=== PATIENT | female | born 1960 | race Caucasian/White ===

== ENCOUNTER 2016-09-20 17:23 | Emergency (ER) | payer SELFPAY ==
[~2016-09-20] VITALS: Wt 40.9 kg
[~2016-09-20 17:23] MED LIST: [UNRECOGNIZED DRUG - CODE]
== END 2016-09-20 19:46 | disposition left against medical advice (07) ==
LOC: E/R 17:23
DX: Z53.21 Procedure and treatment not carried out due to patient leaving prior to being seen by health care provider (principal)

== ENCOUNTER 2017-01-12 10:54 | Emergency (ER) | END 2017-01-12 13:05 | disposition home or self-care (01) | DX: R30.0 Dysuria (principal) | CPT/HCPCS: 81003; Z7502; Z7610 ==

== ENCOUNTER 2017-01-15 08:09 | Emergency (ER) | payer OTHER ==
[~2017-01-15] VITALS: Ht 137.2 cm; Wt 43.0 kg
[~2017-01-15 08:09] MED LIST changes: +ACET500C5 PO; +CEPH-443 PO
[2017-01-15 08:12] VITALS: Ht 137.2 cm; Wt 43.0 kg
[2017-01-15 08:45] LABS: URINE BLOOD (Dip) POC Negative (NEGATIVE)
[2017-01-15] MEDS ORDERED: LIDOCAINE 1% (MDV) 20 ML INJ IM ONE (09:00)
[2017-01-15] MEDS ORDERED: CEFTRIAXONE 500 MG INJ IM ONE (09:00)
--- NOTE | 2017-01-15 09:31 | RADRPT ---
PROCEDURE: Pelvic ultrasound. CLINICAL INDICATION: Pelvic pain TECHNIQUE: Benson scale, color doppler, spectral doppler ultrasound of the pelvis was performed with transabdominal and transvaginal transducers. COMPARISON: CT abdomen pelvis 08/17/2013 FINDINGS: Uterus: Position: Retroverted Normal myometrial echogenicity. Normal appearance of the endometrium. Ovaries: Not identified by the cnc operator programmer Free fluid: None. Measurements: Endometrium: 0.37 cm Uterus: 6.3 x 2.2 x 3.4 cm IMPRESSION: Normal appearance of the uterus and endometrium. Ovaries not identified by the cnc operator programmer. RPTAT: AADD .Ashish Schmidt MD, MD Date Time Electronically viewed and signed by .Ashish Schmidt MD, on 01/15/2017 09:30 .B/
[2017-01-15] MEDS ORDERED: FLUCONAZOLE 150 MG TAB PO ONE (10:00)
[2017-01-15] MEDS ORDERED: NITR-58 PO (10:07)
--- NOTE | 2017-01-15 10:23 | ERD ---
ER Documentation Chief Complaint Date/Time DATE: 01/15/17 TIME: 10:15 Chief Complaint PELVIC PAIN , PAINFUL URINATION HPI 56-year-old female complaining of vaginal pain, pelvic pain and dysuria times several days. Patient was seen here on 01/11/2017, was diagnosed with UTI. She was given Keflex prescription. Patient stated that she felt nausea and vomiting after taking the Keflex. She stopped taking them. She vomited twice this morning. Able to maintain fluid intake. Patient reports vaginal burning but no itching. Denies vaginal discharge. Denies fever or chills. Denies flank pain. ROS All systems reviewed and are negative except as per history of present illness. Medications Home Meds Active Scripts Nitrofurantoin Monohyd Macrocr* (Macrobid*) 100 Mg Capsr, 100 MG PO BID for 7 Days, CAP Prov:TONY RODRIGUEZ HAY FARMER 01/15/17 Acetaminophen* (Tylophen*) 500 Mg Capsule, 1 CAP PO Q6H Y for PAIN AND OR ELEVATED TEMP, #20 CAP Prov:EDWARD HARRIS PA-C 01/12/17 Cephalexin* (Keflex*) 500 Mg Capsule, 500 MG PO BID for 7 Days, CAP Prov:EDWARD HARRIS-C 01/12/17 Reported Medications Famotidine* (Acid Director Child Abuse Therapy*) 20 Mg Tablet 10/18/12 Allergies Allergies: Coded Allergies: ciprofloxacin (Verified Allergy, Intermediate, rashes, 08/02/12) morphine (Verified Adverse Reaction, DIARRHEA,VOMITING, 08/02/12) PMhx/Soc History of Surgery: Yes (APPENDECTOMY) Anesthesia Reaction: No Hx Neurological Disorder: No Hx Respiratory Disorders: No Hx Cardiac Disorders: No Hx Psychiatric Problems: No Hx Miscellaneous Medical Probl: No Hx Alcohol Use: No Hx Substance Use: No Hx Tobacco Use: No Physical Exam Vitals Vital Signs Date Time Temp Pulse Resp B/P Pulse Ox O2 Delivery O2 Flow Rate FiO2 01/15/17 08:12 98.8 86 18 120/60 99 Physical Exam General: Well-developed, well-nourished, conscious and coherent, in no distress Skin: Warm and dry without rash, good texture and turgor Head: Normocephalic without evidence of trauma Eyes: Sclera and conjunctivae normal; pupils equal, round, and reactive to light; extraocular movements are intact Neck: Supple without meningismus or adenopathy. Carotids are equal. Trachea midline. No bruits or JVD Chest: Normal AP diameter. Good expansion without retractions. Nontender. Lungs are clear to auscultate bilaterally with good tidal volume Heart: Regular rate and rhythm. No murmur, rub, or gallops heard Abdomen: Soft and nontender without masses, guarding, or rebound. Bowel sounds are active. No hepatosplenomegaly Back: Without spinal or CVA tenderness Pelvis: Suprapubic tenderness with mild left pelvic tenderness. : External genitalia without lesions or masses. Large amount of thick, white discharge noted in the vaginal canal. Cervix normal, no cervical motion tenderness noted. Uterus nontender and normal size. No adnexal tenderness or masses noted. Extremities: Full range of motion. Good strength bilaterally. No clubbing, cyanosis, or edema. Peripheral pulses are intact. Sensation intact Neuro: Alert and oriented 4, GCS 15. Cranial nerves grossly intact. Motor and sensory exams nonfocal. Moves all extremities. Speech clear. Gait normal Results 24 hrs Laboratory Tests Test 01/15/17 08:50 Bedside Urine pH (LAB) 7.0 Bedside Urine Protein (LAB) Negative Bedside Urine Glucose (UA) Negative Bedside Urine Ketones (LAB) Negative Bedside Urine Blood Negative Bedside Urine Nitrite (LAB) Negative Bedside Urine Leukocyte Esterase (L 2+ Current Medications Medications (Trade) Dose Ordered Sig/Gena Route PRN Reason Start Time Stop Time Status Last Admin Dose Admin Ceftriaxone Sodium (Rocephin) 500 mg ONCE ONCE IM 01/15/17 09:00 01/15/17 09:01 DC 01/15/17 08:57 Lidocaine (Xylocaine 1% (Mdv) 20 ml) 1 ml ONCE ONCE IM 01/15/17 09:00 01/15/17 09:01 DC 01/15/17 08:59 Fluconazole (Diflucan) 150 mg ONCE ONCE PO 01/15/17 10:00 01/15/17 10:01 DC PROCEDURE: Pelvic ultrasound. CLINICAL INDICATION: Pelvic pain TECHNIQUE: Benson scale, color doppler, spectral doppler ultrasound of the pelvis was performed with transabdominal and transvaginal transducers. COMPARISON: CT abdomen pelvis 08/17/2013 FINDINGS: Uterus: Position: Retroverted Normal myometrial echogenicity. Normal appearance of the endometrium. Ovaries: Not identified by the paper coating supervisor Free fluid: None. Measurements: Endometrium: 0.37 cm Uterus: 6.3 x 2.2 x 3.4 cm IMPRESSION: Normal appearance of the uterus and endometrium. Ovaries not identified by the paper coating supervisor. RPTAT: AADD .Ashish Schmidt MD, Date Time Electronically viewed and signed by .Ashish Schmidt MD, on 01/15/2017 09:30 .B/ CC: TONY RODRIGUEZ. HAY FARMER Procedures/MDM Well-appearing 56-year-old female presented ED with UTI symptoms. Patient did not take the prescribed antibiotics. Urine dip today again is positive for leukocyte. Urine sent out for culture and sensitivity. She is afebrile, no CVA tenderness. I doubt she has pyelonephritis. Rocephin 500 mg IM given to the patient in the ED. Patient also will be given prescription of Macrobid. Pelvic exam showed large amount of thick white vaginal discharge. Patient also reports vaginal pain and burning. I suspect that she has yeast vaginitis. Diflucan 150 mg p.o. given to the patient in the ED. Pelvic ultrasound is unremarkable. I doubt pelvic inflammatory disease, ovarian torsion, ruptured ovarian cyst, ectopic . Patient appears well, stable for discharge and outpatient management. Medical decision making shared with patient and family. Education provided to patient and family. Patient and family expressed understanding of the plan. Medications on discharge: Macrobid. Follow-up: Primary care provider in 2-3 days or return to ED if worse. Departure Diagnosis: Primary Impression: UTI (urinary tract infection) Urinary tract infection type: acute cystitis Hematuria presence: with hematuria Qualified Code: N30.01 - Acute cystitis with hematuria Additional Impression: Yeast infection of the vagina Condition: Good Patient Instructions: Understanding Urinary Tract Infections (UTIs), Vaginal Infection: Yeast (Candidiasis) Additional Instructions: Llame al doctor MAANA y darrell juwan RICHAR PARA DENTRO DE 2-3 AARON.Dgale a la secretaria que nosotros le instruimos hacer esta richar.Avise o llame si carney condicin se empeora antes de la richra. Regresa aqui si peor o no mejor. TONY RODRIGUEZ. WINSTON Jan 15, 2017 10:23
[2017-01-15 10:32] VITALS: BP 118/64; PULSE 75; RESP 19
== END 2017-01-15 10:35 | disposition home or self-care (01) ==
LOC: FTE 08:09
DX: N30.01 Acute cystitis with hematuria (principal); B37.3 Candidiasis of vulva and vagina
CPT/HCPCS: 76830; 76856; 81003; 87086; J0696; Z7610; 96372

== ENCOUNTER 2017-04-10 07:43 | Emergency (ER) | payer OTHER ==
[~2017-04-10] VITALS: Ht 144.8 cm; Wt 44.0 kg
[~2017-04-10 07:43] MED LIST changes: +CYCL-319 PO; +IBUP-1542 PO; +NITR-58 PO; +PHEN-538 PO
[2017-04-10 07:46] VITALS: Ht 144.8 cm; Wt 44.0 kg
[2017-04-10] MEDS ORDERED: IBUPROFEN 800 MG TAB PO ONE (08:30)
--- NOTE | 2017-04-10 08:40 | RADRPT ---
PROCEDURE: XR Hand. CLINICAL INDICATION: Right hand pain. TECHNIQUE: Three views. Frontal, lateral, and oblique images of the right hand were obtained. COMPARISON: No prior studies are available for comparison. FINDINGS: There is no fracture or dislocation. The soft tissues are normal. There are degenerative changes of the first interphalangeal joint with joint space narrowing and ost eophytes. The articular surfaces are otherwise intact. There is no lytic or blastic lesion. There is no radiopaque foreign body. IMPRESSION: 1. Degenerative changes of the first interphalangeal joint. 2. Otherwise unremarkable images of the right hand. RPTAT: QQ .Vic Riggs MD, MD Date Time Electronically viewed and signed by .Vic Riggs MD, on 04/10/2017 08:39 .R/
--- NOTE | 2017-04-10 08:43 | ERD ---
ER Documentation Chief Complaint Date/Time DATE: 04/10/17 TIME: 08:42 Chief Complaint r. 1st finger pain/swelling x yesterday HPI This is a 56-year-old female who presents to the emergency room for evaluation of right thumb pain and swelling for the past day. The patient states that she denies any trauma and denies any fevers associated with this. She denies having any medical problems and has not taken any medication to help with her pain and symptoms and came to the emergency room for further evaluation. The patient denies any numbness or tingling to the area ROS All systems reviewed and are negative except as per history of present illness. Medications Home Meds Active Scripts Phenazopyridine Hcl* (Pyridium*) 200 Mg Tab, 200 MG PO TID Y for URINARY PAIN, # 6 TAB Prov:YONIS GLEASON PA-C 12/25/15 Nitrofurantoin Monohyd Macrocr* (Macrobid*) 100 Mg Capsr, 100 MG PO BID for 7 Days, CAP Prov:YONIS GLEASON PA-C 12/25/15 Cyclobenzaprine Hcl* (Cyclobenzaprine Hcl*) 10 Mg Tablet, 10 MG PO TID, #15 TAB Prov:TONY RODRIGUEZ. TECHNICAL MANAGER CHEMICAL PLANT 03/24/15 Ibuprofen* (Motrin*) 600 Mg Tab, 600 MG PO Q6H Y for PAIN AND OR ELEVATED TEMP, #30 Prov:TONY RODRIGUEZ. TECHNICAL MANAGER CHEMICAL PLANT 03/24/15 Allergies Allergies: Coded Allergies: ciprofloxacin (Verified Allergy, Unknown, 04/10/17) morphine (Verified Allergy, Unknown, 04/10/17) PMhx/Soc Medical and Surgical Hx: pt denies Surgical Hx History of Surgery: Yes (cholecystectomy ) Anesthesia Reaction: No Hx Neurological Disorder: No Hx Respiratory Disorders: No Hx Cardiac Disorders: No Hx Psychiatric Problems: No Hx Miscellaneous Medical Probl: No Hx Alcohol Use: No Hx Substance Use: No Hx Tobacco Use: No Smoking Status: Never smoker Physical Exam Vitals Vital Signs Date Time Temp Pulse Resp B/P Pulse Ox O2 Delivery O2 Flow Rate FiO2 04/10/17 07:46 98.6 72 18 134/62 99 Physical Exam INITIAL VITAL SIGNS: Reviewed by me GENERAL: The patient is well developed and appropriate for usual state of health in no apparent distress HEENT: Pupils equal, round, and reactive to light. EOMI. There is no scleral icterus. NECK: C-spine is soft and supple, there is no meningismus. There is no cervical lymphadenopathy. LUNGS: Clear to auscultation bilaterally. There are no rales, wheezes or rhonchi. HEART: Regular rate and rhythm, no murmurs, clicks, rubs or gallops. ABDOMEN: Soft, non-tender, non-distended. There are bowel sounds in all four quadrants. No rebound or guarding. EXTREMITIES: There is no peripheral cyanosis or edema. No focal swelling or erythema. No swelling noted, no erythema, no skin sloughing NEUROLOGICAL: The patient moves all four extremities with 5/5 strength. Cranial nerves II - XII are intact. Normal gait. Alert and oriented SKIN: There is no apparent rash or petechiae. HEME/LYMPHATIC: There is no evidence of excessive bruising or lymphedema. PSYCHIATRIC: The patient does not appear anxious or depressed. Results 24 hrs Current Medications Medications (Trade) Dose Ordered Sig/Gena Route PRN Reason Start Time Stop Time Status Last Admin Dose Admin Ibuprofen (Motrin) 800 mg ONCE ONCE PO 04/10/17 08:30 04/10/17 08:31 DC 04/10/17 08:06 Procedures/MDM X-ray Hand 3V interpreted by me: Scaphoid: [Normal] Bones: Degenerative changes Joints: [No dislocation] Foreign body: [None] This 56-year-old female presents to the emergency room for evaluation of pain in her right thumb. When I evaluated this patient did not note any swelling or erythema. She did have what appeared to be arthritic nodules in the interphalangeal joints. There was no fever and x-ray does reveal degenerative changes. The patient was given Motrin in the emergency room and will be discharged home with a prescription for Motrin to take over the course of the next 7 days. This is likely inflammatory related and not infectious that she has no erythema Departure Diagnosis: Primary Impression: Soft tissue swelling Condition: Stable SHANNAN WILSON DO Apr 10, 2017 08:43
[2017-04-10] MEDS ORDERED: IBUP800T25 PO (08:47)
== END 2017-04-10 08:58 | disposition home or self-care (01) ==
LOC: MERGE 07:43 → FTE 07:43 → UNMERGE 07:43 → FTE 08:58
DX: M79.89 Other specified soft tissue disorders (principal)
CPT/HCPCS: 73130; Z7502; Z7610

== ENCOUNTER 2017-06-23 11:37 | Emergency (ER) | payer OTHER ==
[~2017-06-23] VITALS: Ht 152.4 cm; Wt 44.0 kg
[~2017-06-23 11:37] MED LIST changes: +IBUP800T25 PO
[2017-06-23 11:43] VITALS: Ht 152.4 cm; Wt 44.0 kg
[2017-06-23 14:29] LABS: ADD UMIC YES; UR ASCORBIC ACID 40 mg/dL (NEGATIVE); UR BILIRUBIN (Dip) NEGATIVE (NEGATIVE); UR BLOOD (Dip) NEGATIVE (NEGATIVE); UR CLARITY CLEAR (CLEAR); UR COLOR YELLOW (YELLOW); UR GLUCOSE (Dip) NEGATIVE (NEGATIVE); UR KETONES (Dip) NEGATIVE (NEGATIVE); UR LEUKOCYTE ESTERASE (Dip) 2+ Leu/ul (NEGATIVE); UR NITRITE (Dip) NEGATIVE (NEGATIVE); UR RBC 0 /HPF (0-5); UR SPECIFIC GRAVITY (Dip) 1.016 (1.003-1.030); UR TOTAL PROTEIN (Dip) NEGATIVE (NEGATIVE); UR UROBILINOGEN (Dip) NEGATIVE (NEGATIVE)
[2017-06-23] MEDS ORDERED: CEPH-443 PO (14:33)
[2017-06-23] MEDS ORDERED: IBUP-1542 PO (14:33)
--- NOTE | 2017-06-23 14:37 | ERD ---
ER Documentation Chief Complaint Chief Complaint PT with dysuria and Vaginal pain since this morning. HPI 48-year-old female comes in with painful urination with associated burning or urgency frequency starting today. He reports suprapubic pelvic pressure pain, but no vaginal bleeding, fevers, chills, nausea, vomiting or flank pain. She denies hematuria. ROS All systems reviewed and are negative except as per history of present illness. Medications Home Meds Active Scripts Ibuprofen* (Motrin*) 600 Mg Tab, 600 MG PO Q6, #30 TAB Prov:KAYLYN MCKEON PA-C 06/23/17 Cephalexin* (Keflex*) 500 Mg Capsule, 500 MG PO TID for 7 Days, CAP Prov:KAYLYN MCKEON PA-C 06/23/17 Ibuprofen* (Motrin*) 800 Mg Tab, 800 MG PO Q6H Y for PAIN AND OR ELEVATED TEMP, #30 TAB Prov:SHANNAN WILSON DO 04/10/17 Nitrofurantoin Monohyd Macrocr* (Macrobid*) 100 Mg Capsr, 100 MG PO BID for 7 Days, CAP Prov:TONY RODRIGUEZ NP 01/15/17 Acetaminophen* (Tylophen*) 500 Mg Capsule, 1 CAP PO Q6H Y for PAIN AND OR ELEVATED TEMP, #20 CAP Prov:EDWARD HARRIS PA-C 01/12/17 Cephalexin* (Keflex*) 500 Mg Capsule, 500 MG PO BID for 7 Days, CAP Prov:EDWARD HARRIS PA-C 01/12/17 Phenazopyridine Hcl* (Pyridium*) 200 Mg Tab, 200 MG PO TID Y for URINARY PAIN, # 6 TAB Prov:YONIS GLEASON PA-C 12/25/15 Nitrofurantoin Monohyd Macrocr* (Macrobid*) 100 Mg Capsr, 100 MG PO BID for 7 Days, CAP Prov:YONIS GLEASON PA-C 12/25/15 Cyclobenzaprine Hcl* (Cyclobenzaprine Hcl*) 10 Mg Tablet, 10 MG PO TID, #15 TAB Prov:TONY RODRIGUEZ NP 03/24/15 Ibuprofen* (Motrin*) 600 Mg Tab, 600 MG PO Q6H Y for PAIN AND OR ELEVATED TEMP, #30 Prov:TONY RODRIGUEZ NP 03/24/15 Reported Medications Famotidine* (Acid Dish Cloth Inspector*) 20 Mg Tablet 10/18/12 Allergies Allergies: Coded Allergies: ciprofloxacin (Verified Allergy, Intermediate, rashes, 08/02/12) morphine (Verified Adverse Reaction, DIARRHEA,VOMITING, 08/02/12) PMhx/Soc History of Surgery: Yes (cholecystectomy ) Anesthesia Reaction: No Hx Neurological Disorder: No Hx Respiratory Disorders: No Hx Cardiac Disorders: No Hx Psychiatric Problems: No Hx Miscellaneous Medical Probl: No Hx Alcohol Use: No Hx Substance Use: No Hx Tobacco Use: No Smoking Status: Never smoker Physical Exam Vitals Vital Signs Date Time Temp Pulse Resp B/P Pulse Ox O2 Delivery O2 Flow Rate FiO2 06/23/17 11:43 98.3 104 18 134/69 97 Physical Exam General: Well-developed, well-nourished. The patient appears in no acute distress. HEENT: Head is normocephalic, atraumatic. No scleral icterus. Neck: Supple. Nontender. Lungs: Clear to auscultation. Normal air movement. Heart: Regular rate and rhythm. S1 and S2 are normal. No murmurs, gallops, or rubs. Abdomen: Soft, nontender, nondistended. Bowel sounds are normoactive. Extremities: No clubbing or cyanosis. Normal pulses. Moving extremities x 4. No weakness. Neurologic: Alert and oriented 3. No focal deficits. Skin: Normal turgor. No rash or lesions. Results 24 hrs Laboratory Tests Test 06/23/17 14:07 Urine Color YELLOW Urine Clarity CLEAR Urine pH 7.0 Urine Specific [place] 1.016 Urine Ketones NEGATIVEmg/dL Urine Nitrite NEGATIVEmg/dL Urine Bilirubin NEGATIVEmg/dL Urine Urobilinogen NEGATIVEmg/dL Urine Leukocyte Esterase 2+Otis/ul Urine Microscopic RBC 0/HPF Urine Microscopic WBC 107/HPF Urine Hemoglobin NEGATIVEmg/dL Urine Glucose NEGATIVEmg/dL Urine Total Protein NEGATIVEmg/dl Procedures/MDM 56-year-old female comes in with urinary tract infection, urine analysis shows about 100 white blood cells positive leukocyte esterase. Her vitals reviewed, she is not showing signs of sepsis, pyelonephritis, acute or surgical abdominal process. Departure Diagnosis: Primary Impression: UTI (urinary tract infection) Condition: Good Patient Instructions: Understanding Urinary Tract Infections (UTIs) KAYLYN MCKEON PA-C Jun 23, 2017 14:37
== END 2017-06-23 14:54 | disposition home or self-care (01) ==
LOC: FTE 11:37
DX: N39.0 Urinary tract infection, site not specified (principal)
CPT/HCPCS: 81001; Z7502; 99283

== ENCOUNTER 2017-07-22 10:10 | Emergency (ER) | END 2017-07-22 11:09 | disposition left against medical advice (07) ==

== ENCOUNTER 2018-01-13 10:03 | Emergency (ER) | END 2018-01-13 11:57 | disposition home or self-care (01) ==

== ENCOUNTER 2018-06-15 07:37 | Emergency (ER) | END 2018-06-15 08:20 | disposition home or self-care (01) ==

== ENCOUNTER 2018-06-19 13:30 | Emergency (ER) | END 2018-06-19 17:45 | disposition home or self-care (01) ==

== ENCOUNTER 2018-10-09 12:48 | Emergency (ER) | payer OTHER ==
[~2018-10-09] VITALS: Ht 137.2 cm; Wt 38.5 kg
[~2018-10-09 12:48] MED LIST changes: +AMOX1TAB10 PO; -CYCL-319 PO; +CYCL10TA7 PO; -IBUP800T25 PO; +IBUP800T48 PO; +LOPE2CAP PO; +ONDA4TAB14 PO
[2018-10-09 12:57] VITALS: BP 136/79; PULSE 61; RESP 18; Ht 137.2 cm; Wt 38.5 kg
[2018-10-09] MEDS ORDERED: ACETAMINOPHEN 500 MG TAB PO STA (14:33)
[2018-10-09] MEDS ORDERED: NITR-58 PO (14:46)
[2018-10-09] MEDS ORDERED: ACET500C5 PO (14:46)
[2018-10-09] MEDS ORDERED: PHEN-538 PO (14:46)
--- NOTE | 2018-10-09 14:50 | ERD ---
ER Documentation Chief Complaint Chief Complaint body aches, nasal congestion and sneezing x3 days HPI 58-year-old female presents with burning in the pelvic area for the last 16 years. She is seen a grey percher and told her that was normal as well as her primary doctor. She has been treated on occasion with cream and antibiotics without relief. She denies any discharge, bleeding, right or left abdominal pain, fevers, vomiting, shortness of breath, chest pain. ROS All systems reviewed and are negative except as per history of present illness. Medications Home Meds Active Scripts Nitrofurantoin Monohyd Macrocr* (Macrobid*) 100 Mg Capsr, 100 MG PO BID for 7 Days, CAP Prov:RASHI MCKEON MD 10/09/18 Phenazopyridine Hcl* (Pyridium*) 200 Mg Tab, 200 MG PO TID PRN for URINARY PAIN, #6 TAB Prov:RASHI MCKEON MD 10/09/18 Acetaminophen* (Tylophen*) 500 Mg Capsule, 1 CAP PO Q6H PRN for PAIN AND OR ELEVATED TEMP, #20 CAP Prov:RASHI MCKEON MD 10/09/18 Cephalexin* (Keflex*) 500 Mg Capsule, 500 MG PO QID for 7 Days, CAP Prov:TRUNG WHEELER PA-C 08/11/18 Cephalexin* (Keflex*) 500 Mg Capsule, 500 MG PO BID for 7 Days, CAP Prov:DC JULES MD 06/19/18 Ondansetron (Ondansetron Odt) 4 Mg Tab.rapdis, 4 MG PO Q6H PRN for NAUSEA AND/OR VOMITING, #10 TAB Prov:TAY COOLEY MD 06/15/18 Loperamide Hcl* (Imodium*) 2 Mg Capsule, 2 MG PO .AFTER EA LOOSE BM PRN for DIARRHEA, #10 TAB Prov:TAY COOLEY MD 06/15/18 Nitrofurantoin Monohyd Macrocr* (Macrobid*) 100 Mg Capsr, 100 MG PO BID for 7 Days, CAP Prov:TAY COOLEY MD 06/15/18 Loperamide Hcl* (Imodium*) 2 Mg Capsule, 2 MG PO .AFTER EA LOOSE BM PRN for DIARRHEA, #10 TAB Prov:LISSY AMEZCUA 01/13/18 Acetaminophen* (Tylophen*) 500 Mg Capsule, 1 CAP PO Q6H PRN for PAIN AND OR ELEVATED TEMP, #20 CAP Prov:LISSY AMEZCUA 01/13/18 Amoxicillin/Potassium Clav (Amox-Clav 875-125 mg Tablet) 875-125 mg Tab, 1 TAB PO BID for 10 Days, #20 TAB Prov:LISSY AMEZCUA 01/13/18 Ibuprofen* (Motrin*) 600 Mg Tab, 600 MG PO Q6, #30 TAB Prov:KAYLYN MCKEON PA-C 06/23/17 Cephalexin* (Keflex*) 500 Mg Capsule, 500 MG PO TID for 7 Days, CAP Prov:KAYLYN MCKEON PA-C 06/23/17 Ibuprofen* (Motrin*) 800 Mg Tab, 800 MG PO Q6H PRN for PAIN AND OR ELEVATED TEMP, #30 TAB Prov:SHANNAN WILSON DO 04/10/17 Nitrofurantoin Monohyd Macrocr* (Macrobid*) 100 Mg Capsr, 100 MG PO BID for 7 Days, CAP Prov:TONY RODRIGUEZ CONTRACTS ADVISOR 01/15/17 Acetaminophen* (Tylophen*) 500 Mg Capsule, 1 CAP PO Q6H PRN for PAIN AND OR ELEVATED TEMP, #20 CAP Prov:EDWARD HARRIS PA-C 01/12/17 Cephalexin* (Keflex*) 500 Mg Capsule, 500 MG PO BID for 7 Days, CAP Prov:EDWARD HARRIS PA-C 01/12/17 Phenazopyridine Hcl* (Pyridium*) 200 Mg Tab, 200 MG PO TID PRN for URINARY PAIN, #6 TAB Prov:YONIS GLEASON PA-C 12/25/15 Nitrofurantoin Monohyd Macrocr* (Macrobid*) 100 Mg Capsr, 100 MG PO BID for 7 Days, CAP Prov:YONIS GLEASON PA-C 12/25/15 Cyclobenzaprine Hcl* (Cyclobenzaprine Hcl*) 10 Mg Tablet, 10 MG PO TID, #15 TAB Prov:TONY RODRIGUEZ. CONTRACTS ADVISOR 03/24/15 Ibuprofen* (Motrin*) 600 Mg Tab, 600 MG PO Q6H PRN for PAIN AND OR ELEVATED TEMP, #30 Prov:TONY RODRIGUEZ CONTRACTS ADVISOR 03/24/15 Reported Medications Famotidine* (Acid Ceramic Worker*) 20 Mg Tablet 10/18/12 Allergies Allergies: Coded Allergies: ciprofloxacin (Verified Allergy, Intermediate, rashes, 01/13/18) morphine (Verified Adverse Reaction, Unknown, DIARRHEA,VOMITING, 01/13/18) PMhx/Soc Medical and Surgical Hx: pt denies Medical Hx History of Surgery: Yes (c section,cholecystectomy) Anesthesia Reaction: No Hx Neurological Disorder: No Hx Respiratory Disorders: No Hx Cardiac Disorders: No Hx Psychiatric Problems: No Hx Miscellaneous Medical Probl: Yes (UTI) Hx Alcohol Use: No Hx Substance Use: No Hx Tobacco Use: No Smoking Status: Never smoker FmHx Family History: No diabetes, No coronary disease, No other Physical Exam Vitals Vital Signs Date Temp Pulse Resp B/P (MAP) Pulse Ox O2 O2 Flow FiO2 Time Delivery Rate 10/09/18 98.7 61 18 136/79 98 12:57 (98) Physical Exam Const: No acute distress Head: Atraumatic Eyes: Normal Conjunctiva ENT: Normal External Ears, Nose and Mouth. Neck: Full range of motion. No meningismus. Resp: Clear to auscultation bilaterally Cardio: Regular rate and rhythm, no murmurs Abd: Soft, non tender, non distended. Normal bowel sounds. Pelvic examination with contract officer shows no no masses, external lesions, erythema, identifiable abnormalities. No cervical motion tenderness. Skin: No petechiae or rashes Back: No midline or flank tenderness Ext: No cyanosis, or edema Neur: Awake and alert Psych: Normal Mood and Affect Results 24 hrs Laboratory Tests Test 10/09/18 14:10 Urine Color [place] Urine Clarity CLEAR Urine pH 8.0 Urine Specific [place] 1.003 Urine Ketones NEGATIVE mg/dL Urine Nitrite NEGATIVE mg/dL Urine Bilirubin NEGATIVE mg/dL Urine Urobilinogen NEGATIVE mg/dL Urine Leukocyte Esterase 1+ [place]/ul Urine Microscopic RBC 0 /HPF Urine Microscopic WBC 9 /HPF Urine Bacteria FEW /HPF Urine Hemoglobin NEGATIVE mg/dL Urine Glucose NEGATIVE mg/dL Urine Total Protein NEGATIVE mg/dl Current Medications Medications Dose Sig/Gena Start Time Status Last (Trade) Ordered Route PRN Stop Time Admin Dose Reason Admin 500 mg ONCE STAT 10/09/18 DC 10/09/18 Acetaminophen PO 14:33 10/09/18 14:37 (Tylenol 14:34 Tab) Procedures/MDM Urine shows leukocyte esterase and white blood cells. Patient will be treated for UTI with Macrobid and Tylenol and Pyridium although patient's symptoms have been for 16 years with normal evaluations by TOMATO PULPER OPERATOR. She will be discharged home with primary care follow-up and continued observation and return precautions. The patient was stable with no new complaints during the ER course. Clinically, there is no current evidence to suggest meningitis, sepsis, acute abdomen, pneumonia, stroke, acute coronary syndrome, pulmonary embolism, aortic dissection or any other emergent condition appearing to require further evaluation or hospitalization. Patient counseled regarding my diagnostic impression and care plan. Prior to discharge all questions answered. Pt agrees with treatment plan and understands strict return precautions. Pt is instructed to follow up with primary care provider within 24-48 hours. Precautionary instructions provided including instructions to return to the ER if not impr oving or for any worsening or changing symptoms or concerns. Departure Diagnosis: Primary Impression: UTI (urinary tract infection) Urinary tract infection type: acute cystitis Hematuria presence: without hematuria Qualified Codes: N30.00 - Acute cystitis without hematuria Condition: Stable Patient Instructions: Understanding Urinary Tract Infections (UTIs), Pelvic Pain, Unknown Cause Referrals: PARVIN AGUSTIN (PCP) Additional Instructions: HAY INFECCION EN ORINA DONITA Y VAMOS A TRATAR DONITA OTRO examines normal hoy. Cheque otro vez con carney doctor primario en el proximo lala or regresa para mas o nueva simptomas. RASHI MCKEON MD Oct 09, 2018 14:50
== END 2018-10-09 15:01 | disposition home or self-care (01) ==
LOC: FTE 12:48
DX: N39.0 Urinary tract infection, site not specified (principal)
CPT/HCPCS: 81001; Z7502; Z7610; 99284

== ENCOUNTER 2018-10-30 05:52 | Emergency (ER) | payer OTHER ==
[~2018-10-30] VITALS: Wt 38.3 kg
[2018-10-30 05:54] VITALS: BP 149/66; PULSE 63; RESP 18
[2018-10-30] MEDS ORDERED: KETOROLAC 30 MG INJ IM STA (06:53)
[2018-10-30] MEDS ORDERED: CEPH-443 PO (06:55)
[2018-10-30] MEDS ORDERED: PHEN-538 PO (06:55)
[2018-10-30] MEDS ORDERED: CEPHALEXIN 500 MG CAP PO ONE (07:00)
[2018-10-30] MEDS ORDERED: PHENAZOPYRIDINE 100 MG TAB PO ONE (07:00)
--- NOTE | 2018-10-30 09:04 | ERD ---
ER Documentation Chief Complaint Chief Complaint AP, DIARRHEA X'S 1 DAY HPI Patient is a 58-year-old female with no medical problems who presents with abdominal pain. She said her symptoms started yesterday at 6 PM. She has had diarrhea. She has no fevers. She tried Tylenol and Pepto-Bismol. She has no pain with urination. Upon review of old medical record the patient has multiple visits to the ER. Review of the emergency department information exchange system shows visits to 3 separate emergency departments for a total of 9 visits over the past 1 year. Her primary doctor is Dr. Agustin. ROS All systems reviewed and are negative except as per history of present illness. Medications Home Meds Active Scripts Phenazopyridine Hcl* (Pyridium*) 200 Mg Tab, 200 MG PO TID PRN for URINARY PAIN, #6 TAB Prov:TAY COOLEY MD 10/30/18 Cephalexin* (Keflex*) 500 Mg Capsule, 500 MG PO BID for 14 Days, CAP Prov:TAY COOLEY MD 10/30/18 Nitrofurantoin Monohyd Macrocr* (Macrobid*) 100 Mg Capsr, 100 MG PO BID for 7 Days, CAP Prov:RASHI MCKEON MD 10/09/18 Phenazopyridine Hcl* (Pyridium*) 200 Mg Tab, 200 MG PO TID PRN for URINARY PAIN, #6 TAB Prov:RASHI MCKEON MD 10/09/18 Acetaminophen* (Tylophen*) 500 Mg Capsule, 1 CAP PO Q6H PRN for PAIN AND OR ELEVATED TEMP, #20 CAP Prov:RASHI MCKEON MD 10/09/18 Cephalexin* (Keflex*) 500 Mg Capsule, 500 MG PO QID for 7 Days, CAP Prov:TRUNG WHEELER PA-C 08/11/18 Cephalexin* (Keflex*) 500 Mg Capsule, 500 MG PO BID for 7 Days, CAP Prov:DC JULES MD 06/19/18 Ondansetron (Ondansetron Odt) 4 Mg Tab.rapdis, 4 MG PO Q6H PRN for NAUSEA AND/OR VOMITING, #10 TAB Prov:TAY COOLEY MD 06/15/18 Loperamide Hcl* (Imodium*) 2 Mg Capsule, 2 MG PO .AFTER EA LOOSE BM PRN for DIARRHEA, #10 TAB Prov:TAY COOLEY MD 06/15/18 Nitrofurantoin Monohyd Macrocr* (Macrobid*) 100 Mg Capsr, 100 MG PO BID for 7 Days, CAP Prov:TAY COOLEY MD 06/15/18 Loperamide Hcl* (Imodium*) 2 Mg Capsule, 2 MG PO .AFTER EA LOOSE BM PRN for DIARRHEA, #10 TAB Prov:PASILASHABNAM OHARAAR F 01/13/18 Acetaminophen* (Tylophen*) 500 Mg Capsule, 1 CAP PO Q6H PRN for PAIN AND OR ELEVATED TEMP, #20 CAP Prov:JERRYILALISSY OHARA F 01/13/18 Amoxicillin/Potassium Clav (Amox-Clav 875-125 mg Tablet) 875-125 mg Tab, 1 TAB PO BID for 10 Days, #20 TAB Prov:PASILALEVSHABNAMAR F 01/13/18 Ibuprofen* (Motrin*) 600 Mg Tab, 600 MG PO Q6, #30 TAB Prov:KAYLYN MCKEON PA-C 06/23/17 Cephalexin* (Keflex*) 500 Mg Capsule, 500 MG PO TID for 7 Days, CAP Prov:KAYLYN MCKEON PA-C 06/23/17 Ibuprofen* (Motrin*) 800 Mg Tab, 800 MG PO Q6H PRN for PAIN AND OR ELEVATED TEMP, #30 TAB Prov:SHANNAN WILSON DO 04/10/17 Nitrofurantoin Monohyd Macrocr* (Macrobid*) 100 Mg Capsr, 100 MG PO BID for 7 Days, CAP Prov:TONY RODRIGUEZ NP 01/15/17 Acetaminophen* (Tylophen*) 500 Mg Capsule, 1 CAP PO Q6H PRN for PAIN AND OR ELEVATED TEMP, #20 CAP Prov:EDWARD HARRIS PA-C 01/12/17 Cephalexin* (Keflex*) 500 Mg Capsule, 500 MG PO BID for 7 Days, CAP Prov:EDWARD HARRISC 01/12/17 Phenazopyridine Hcl* (Pyridium*) 200 Mg Tab, 200 MG PO TID PRN for URINARY PAIN, #6 TAB Prov:YONIS GLEASON PA-C 6/20/16 Nitrofurantoin Monohyd Macrocr* (Macrobid*) 100 Mg Capsr, 100 MG PO BID for 7 Days, CAP Prov:YONIS GLEASON PA-C 12/25/15 Cyclobenzaprine Hcl* (Cyclobenzaprine Hcl*) 10 Mg Tablet, 10 MG PO TID, #15 TAB Prov:TONY RODRIGUEZ W[employer]S INSPECTOR 03/24/15 Ibuprofen* (Motrin*) 600 Mg Tab, 600 MG PO Q6H PRN for PAIN AND OR ELEVATED TEMP, #30 Prov:TONY RODRIGUEZ W[employer] INSPECTOR 03/24/15 Reported Medications Famotidine* (Acid Professor Of Food Biochemistry*) 20 Mg Tablet 10/18/12 Allergies Allergies: Coded Allergies: ciprofloxacin (Verified Allergy, Intermediate, rashes, 01/13/18) morphine (Verified Adverse Reaction, Unknown, DIARRHEA,VOMITING, 01/13/18) PMhx/Soc History of Surgery: No Anesthesia Reaction: No Hx Neurological Disorder: No Hx Respiratory Disorders: No Hx Cardiac Disorders: No Hx Psychiatric Problems: No Hx Miscellaneous Medical Probl: No Hx Alcohol Use: No Hx Substance Use: No Hx Tobacco Use: No Smoking Status: Never smoker FmHx Family History: No diabetes Physical Exam Vitals Vital Signs Date Temp Pulse Resp B/P (MAP) Pulse Ox O2 O2 Flow FiO2 Time Delivery Rate 10/30/18 98.4 63 18 149/66 99 05:54 (93) Physical Exam Const: Moderate distress secondary to pain Head: Atraumatic Eyes: Normal Conjunctiva ENT: Normal External Ears, Nose and Mouth. Neck: Full range of motion. No meningismus. Resp: Clear to auscultation bilaterally Cardio: Regular rate and rhythm, no murmurs Abd: Soft, diffuse abdominal tenderness to palpation without rebound or guarding Skin: No petechiae or rashes Back: No midline or flank tenderness Ext: No cyanosis, or edema Neur: Awake and alert Psych: Normal Mood and Affect Results 24 hrs Laboratory Tests Test 10/30/18 06:49 Bedside Urine pH (LAB) 6.5 Bedside Urine Protein (LAB) Negative Bedside Urine Glucose (UA) Negative Bedside Urine Ketones (LAB) Negative Bedside Urine Blood Negative Bedside Urine Nitrite (LAB) Negative Bedside Urine Leukocyte Esterase (L 1+ Current Medications Medications Dose Sig/Gena Start Time Status Last (Trade) Ordered Route PRN Stop Time Admin Dose Reason Admin Ketorolac 30 mg ONCE STAT 10/30/18 DC 10/30/18 Tromethamine IM 06:53 07:03 (Toradol) 10/30/18 06:54 200 mg ONCE ONCE 10/30/18 DC 10/30/18 Phenazopyridi PO 07:00 07:03 ne HCl 10/30/18 07:01 (Pyridium) Cephalexin 500 mg ONCE ONCE 10/30/18 DC 10/30/18 (Keflex) PO 07:00 07:04 10/30/18 07:01 Procedures/MDM Urine dip positive for infection. Patient is a 58-year-old female with no medical problems who presents with abdominal pain. She was found to have acute cystitis. I doubt sepsis at this time. The patient will be discharged and will need to follow-up with a primary doctor within 24 to 48 hours. She will be given Keflex for a 2-week course that she has had frequent UTIs in the past. I believe outpatient management is appropriate. I doubt appendicitis, cholecystitis, pancreatitis, or bowel obstruction. I believe the risk of doing a CT scan of the abdomen and pelvis outweigh the benefits. Departure Diagnosis: Primary Impression: Abdominal pain Abdominal location: generalized Qualified Codes: R10.84 - Generalized abdominal pain Additional Impression: Cystitis Patient Instructions: Abdominal Pain, Cystitis Referrals: PARVIN AGUSTIN (PCP) Additional Instructions: Llame al doctor MILAGROS y darrell juwan RICHAR PARA DENTRO DE 1-2 AARON.Dgale a la secretaria que nosotros le instruimos hacer esta richar.Avise o llame si carney condicin se empeora antes de la richar. Regresa aqui si peor o no mejor. TAY COOLEY MD Oct 30, 2018 09:04
== END 2018-10-30 07:18 | disposition home or self-care (01) ==
LOC: E/R 05:52
DX: N30.90 Cystitis, unspecified without hematuria (principal); R40.2142 Coma scale, eyes open, spontaneous, at arrival to emergency department; R40.2362 Coma scale, best motor response, obeys commands, at arrival to emergency department; R40.2252 Coma scale, best verbal response, oriented, at arrival to emergency department
CPT/HCPCS: 81003; 96372; J1885; Z7502; Z7610

== ENCOUNTER 2019-01-15 11:12 | Emergency (ER) | payer OTHER ==
[~2019-01-15] VITALS: Ht 144.8 cm; Wt 50.0 kg
[2019-01-15 11:14] VITALS: BP 118/57; PULSE 84; RESP 16; Ht 144.8 cm; Wt 50.0 kg
--- NOTE | 2019-01-15 12:31 | EN ---
Date/Time of Note Date/Time of Note DATE: 01/15/19 TIME: 12:30 ER Progress Note 58-year-old female, presents the emergency department, complaining of dysuria and pelvic pain, the patient has history of multiple UTIs, I will start work-up in the triage area, patient stable to go to ED 2. JILLIAN NEWBY MD Jan 15, 2019 12:31
--- NOTE | 2019-01-15 14:04 | ERD ---
ER Documentation Chief Complaint Chief Complaint pt is bib self with c/o pelvic/abd pain for a few days HPI Patient is a 58 years old female with past medical history of recurrent UTI presenting to the clinic for suprapubic, abdominal pain, dysuria, urinary urgency, urinary frequency X few days. Patient denies vaginal bleeding, vaginal discharge, flank pain, fever, night sweats, chills of breath, cough. Patient admits to associated chills he denies take any OTC medication. ROS All systems reviewed and are negative except as per history of present illness. Medications Home Meds Active Scripts Phenazopyridine Hcl* (Pyridium*) 200 Mg Tab, 200 MG PO TID PRN for URINARY PAIN, #6 TAB Prov:ZANDRA PEGUERO PA-C 01/15/19 Nitrofurantoin Monohyd Macrocr* (Macrobid*) 100 Mg Capsr, 100 MG PO BID for 7 Days, #14 CAP Prov:ZANDRA PEGUERO PA-C 01/15/19 Phenazopyridine Hcl* (Pyridium*) 200 Mg Tab, 200 MG PO TID PRN for URINARY PAIN, #6 TAB Prov:TAY COOLEY MD 10/30/18 Cephalexin* (Keflex*) 500 Mg Capsule, 500 MG PO BID for 14 Days, CAP Prov:TAY COOLEY MD 10/30/18 Nitrofurantoin Monohyd Macrocr* (Macrobid*) 100 Mg Capsr, 100 MG PO BID for 7 Days, CAP Prov:RASHI MCKEON MD 10/09/18 Phenazopyridine Hcl* (Pyridium*) 200 Mg Tab, 200 MG PO TID PRN for URINARY PAIN, #6 TAB Prov:RASHI MCKEON MD 10/09/18 Acetaminophen* (Tylophen*) 500 Mg Capsule, 1 CAP PO Q6H PRN for PAIN AND OR ELEVATED TEMP, #20 CAP Prov:RASHI MCKEON MD 10/09/18 Cephalexin* (Keflex*) 500 Mg Capsule, 500 MG PO QID for 7 Days, CAP Prov:TRUNG WHEELER PA-C 08/11/18 Cephalexin* (Keflex*) 500 Mg Capsule, 500 MG PO BID for 7 Days, CAP Prov:DC JULES MD 06/19/18 Ondansetron (Ondansetron Odt) 4 Mg Tab.rapdis, 4 MG PO Q6H PRN for NAUSEA AND/OR VOMITING, #10 TAB Prov:TAY COOLEY MD 06/15/18 Loperamide Hcl* (Imodium*) 2 Mg Capsule, 2 MG PO .AFTER EA LOOSE BM PRN for DIARRHEA, #10 TAB Prov:ATY COOLEY MD 06/15/18 Nitrofurantoin Monohyd Macrocr* (Macrobid*) 100 Mg Capsr, 100 MG PO BID for 7 Days, CAP Prov:TAY COOLEY MD 06/15/18 Loperamide Hcl* (Imodium*) 2 Mg Capsule, 2 MG PO .AFTER EA LOOSE BM PRN for DIARRHEA, #10 TAB Prov:LISSY AMEZCUA 01/13/18 Acetaminophen* (Tylophen*) 500 Mg Capsule, 1 CAP PO Q6H PRN for PAIN AND OR ELEVATED TEMP, #20 CAP Prov:LISSY AMEZCUA 01/13/18 Amoxicillin/Potassium Clav (Amox-Clav 875-125 mg Tablet) 875-125 mg Tab, 1 TAB PO BID for 10 Days, #20 TAB Prov:LISSY AMEZCUA F 01/13/18 Ibuprofen* (Motrin*) 600 Mg Tab, 600 MG PO Q6, #30 TAB Prov:KAYLYN MCKEON PA-C 06/23/17 Cephalexin* (Keflex*) 500 Mg Capsule, 500 MG PO TID for 7 Days, CAP Prov:KAYLYN MCKEON PA-C 06/23/17 Ibuprofen* (Motrin*) 800 Mg Tab, 800 MG PO Q6H PRN for PAIN AND OR ELEVATED TEMP, #30 TAB Prov:SHANNAN WILSON DO 04/10/17 Nitrofurantoin Monohyd Macrocr* (Macrobid*) 100 Mg Capsr, 100 MG PO BID for 7 Days, CAP Prov:TONY RODRIGUEZ NP 01/15/17 Acetaminophen* (Tylophen*) 500 Mg Capsule, 1 CAP PO Q6H PRN for PAIN AND OR ELEVATED TEMP, #20 CAP Prov:EDWARD HARRIS PA-C 01/12/17 Cephalexin* (Keflex*) 500 Mg Capsule, 500 MG PO BID for 7 Days, CAP Prov:EDWARD HARRIS PA-C 01/12/17 Phenazopyridine Hcl* (Pyridium*) 200 Mg Tab, 200 MG PO TID PRN for URINARY PAIN, #6 TAB Prov:YONIS GLEASON PA-C 12/25/15 Nitrofurantoin Monohyd Macrocr* (Macrobid*) 100 Mg Capsr, 100 MG PO BID for 7 Days, CAP Prov:YONIS GLEASON PA-C 12/25/15 Cyclobenzaprine Hcl* (Cyclobenzaprine Hcl*) 10 Mg Tablet, 10 MG PO TID, #15 TAB Prov:TONY RODRIGUEZ PLASTIC STRAIGHTENING ROLL OPERATOR 03/24/15 Ibuprofen* (Motrin*) 600 Mg Tab, 600 MG PO Q6H PRN for PAIN AND OR ELEVATED TEMP, #30 Prov:TONY RODRIGUEZ. PLASTIC STRAIGHTENING ROLL OPERATOR 03/24/15 Reported Medications Famotidine* (Acid Fagoter*) 20 Mg Tablet 10/18/12 Allergies Allergies: Coded Allergies: ciprofloxacin (Verified Allergy, Intermediate, rashes, 01/13/18) morphine (Verified Adverse Reaction, Unknown, DIARRHEA,VOMITING, 01/13/18) PMhx/Soc History of Surgery: No Anesthesia Reaction: No Hx Neurological Disorder: No Hx Respiratory Disorders: No Hx Cardiac Disorders: No Hx Psychiatric Problems: No Hx Miscellaneous Medical Probl: No Hx Alcohol Use: No Hx Substance Use: No Hx Tobacco Use: No FmHx Family History: No diabetes, No coronary disease, No other Physical Exam Vitals Vital Signs Date Temp Pulse Resp B/P (MAP) Pulse Ox O2 O2 Flow FiO2 Time Delivery Rate 01/15/19 98.3 84 16 118/57 98 11:14 (77) Physical Exam Const: No acute distress Head: Atraumatic Eyes: Normal Conjunctiva ENT: Normal External Ears, Nose and Mouth. Neck: Full range of motion. No meningismus. Resp: Clear to auscultation bilaterally Cardio: Regular rate and rhythm, no murmurs Abd: Soft, non tender, non distended. Normal bowel sounds Skin: No petechiae or rashes Back: No midline or flank tenderness Ext: No cyanosis, or edema Neur: Awake and alert Psych: Normal Mood and Affect Result Diagram: 01/15/19 1253 01/15/19 1253 Results 24 hrs Laboratory Tests Test 01/15/19 12:53 White Blood Count 5.1 10^3/ul Red Blood Count 4.35 10^6/ul Hemoglobin 13.1 g/dl Hematocrit 39.3 % Mean Corpuscular Volume 90.3 fl Mean Corpuscular Hemoglobin 30.1 pg Mean Corpuscular Hemoglobin Concent 33.3 g/dl Red Cell Distribution Width 12.7 % Platelet Count 303 10^3/UL Mean Platelet Volume 8.8 fl Immature Granulocytes % 0.200 % Neutrophils % 58.1 % Lymphocytes % 33.5 % Monocytes % 7.0 % Eosinophils % 0.2 % Basophils % 1.0 % Nucleated Red Blood Cells % 0.0 /100WBC Immature Granulocytes # 0.010 10^3/ul Neutrophils # 3.0 10^3/ul Lymphocytes # 1.7 10^3/ul Monocytes # 0.4 10^3/ul Eosinophils # 0.0 10^3/ul Basophils # 0.1 10^3/ul Nucleated Red Blood Cells # 0.0 10^3/ul Urine Color YELLOW Urine Clarity SLIGHTLY CLOUDY Urine pH 6.0 Urine Specific [place] 1.006 Urine Ketones NEGATIVE mg/dL Urine Nitrite NEGATIVE mg/dL Urine Bilirubin NEGATIVE mg/dL Urine Urobilinogen NEGATIVE mg/dL Urine Leukocyte Esterase 3+ Otis/ul Urine Microscopic RBC 4 /HPF Urine Microscopic WBC 35 /HPF Urine Squamous Epithelial Cells FEW /HPF Urine Bacteria FEW /HPF Urine Hemoglobin 1+ mg/dL Urine Glucose NEGATIVE mg/dL Urine Total Protein NEGATIVE mg/dl Sodium Level 143 mmol/L Potassium Level 3.7 mmol/L Chloride Level 106 mmol/L Carbon Dioxide Level 28 mmol/L Anion Gap 9 Blood Urea Nitrogen 6 mg/dl Creatinine 0.68 mg/dl Est Glomerular Filtrat Rate mL/min > 60 mL/min Glucose Level 99 mg/dl Calcium Level 9.8 mg/dl Total Bilirubin 0.8 mg/dl Direct Bilirubin 0.00 mg/dl Indirect Bilirubin 0.8 mg/dl Aspartate Amino Transf (AST/SGOT) 25 IU/L Alanine Aminotransferase (ALT/SGPT) 17 IU/L Alkaline Phosphatase 84 IU/L Total Protein 7.8 g/dl Albumin 4.4 g/dl Globulin 3.40 g/dl Albumin/Globulin Ratio 1.29 Lipase 167 U/L Current Medications Medications Dose Sig/Gena Start Time Status Last (Trade) Ordered Route PRN Stop Time Admin Dose Reason Admin 200 mg ONCE ONCE 01/15/19 Phenazopyridi PO 14:30 ne HCl 01/15/19 14:31 (Pyridium) Procedures/MDM Patient was seen and evaluated for dysuria and suprapubic pain. CBC, CMP, lipase, urinalysis revealed leukocyte esterase and urine white blood cells otherwise unremarkable. CT of pelvis and abdomen revealed There is a fecal filled colon.No evidence of bowel obstruction or inflammation. There is no appendicitis. There is diverticulosis without diverticulitis. Atherosclerotic disease is present. No renal or ureteral calculi with no evidence of hydronephrosis. Patient is experiencing UTI and was given Pyridium 200mg in ED. Patient is stable ready for discharge. Follow-up with PCP. Patient be discharged with Macrobid X 7 days and Pyridium. Departure Diagnosis: Primary Impression: UTI (urinary tract infection) Urinary tract infection type: site unspecified Hematuria presence: without hematuria Qualified Codes: N39.0 - Urinary tract infection, site not specified Condition: Stable Patient Instructions: Understanding Urinary Tract Infections (UTIs) Referrals: [facility] Additional Instructions: Paciente aconseja volver a Departamento de urgencias inmediatamente para sntomas nuevos o que empeoran . Paciente aconseja posteriores con el PCP en 2-3 gonzalez . Paciente verbaliza la comprehensin y est de acuerdo con el tratamiento y el curso de accin. Si el paciente no tiene ninguna de atencin primaria pueden seguir con [facility] [address] [place] [address] o [facility] + [address] [address] ZANDRA PEGUERO PA-C Jan 15, 2019 14:04
[2019-01-15] MEDS ORDERED: PHEN-538 PO (14:07)
[2019-01-15] MEDS ORDERED: NITR-58 PO (14:07)
[2019-01-15] MEDS ORDERED: PHENAZOPYRIDINE 100 MG TAB PO ONE (14:30)
== END 2019-01-15 14:20 | disposition home or self-care (01) ==
LOC: FTE 11:12
DX: N39.0 Urinary tract infection, site not specified (principal)
CPT/HCPCS: 36415; 74176; 80053; 81001; 83690; 85025; Z7502; Z7610

== ENCOUNTER 2019-01-27 15:03 | Emergency (ER) | payer OTHER ==
[~2019-01-27] VITALS: Ht 139.7 cm; Wt 37.5 kg
[2019-01-27 15:40] VITALS: Ht 139.7 cm; Wt 37.5 kg
[2019-01-27] MEDS ORDERED: KETOROLAC 30 MG INJ IV STA (16:43)
[2019-01-27] MEDS ORDERED: SOD CHLORIDE 0.9% 1,000 ML IV STA (16:43)
[2019-01-27] MEDS ORDERED: ONDANSETRON 4 MG INJ IV STA (16:43)
[2019-01-27] MEDS ORDERED: DIPHENOXYLATE/ATROPINE TAB PO ONE (17:00)
--- NOTE | 2019-01-27 17:52 | ERD ---
ER Documentation Chief Complaint Chief Complaint diarrhea+ abdominal cramping x4d. no vomiting. HPI This is a 58-year-old Ghanaian-speaking female with a past medical history of hypertension who presents to the emergency department complaining of frequency urgency and dysuria that is been present for several months. The patient ind icates she has a history of frequent urinary tract infections. She states that for she has been on and off antibiotics for several years. Most recently on January 15, 2019 the patient presented to [facility] for urinary tract infection was placed on Macrobid which she took for 7 days. Prior to that she is also been seen for similar symptoms in August 2018 and had been placed on Keflex. She indicates that 4 days ago she developed severe abdominal cramping in the left lower quadrant. This was followed by multiple episodes of loose watery stools roughly 5 episodes per day. She states that the abdominal cramping is worse when she is experiencing the diarrhea. She has not experienced any emesis. She denies any hemoptysis hematemesis or melanotic stools. She said no fevers or shaking no chills. She has had a decrease in appetite for the past 4 days. ROS All systems reviewed and are negative except as per history of present illness. Medications Home Meds Active Scripts Phenazopyridine Hcl* (Pyridium*) 200 Mg Tab, 200 MG PO TID PRN for URINARY PAIN, #6 TAB Prov:ZANDRA PEGUERO PA-C 01/15/19 Nitrofurantoin Monohyd Macrocr* (Macrobid*) 100 Mg Capsr, 100 MG PO BID for 7 Days, #14 CAP Prov:ZANDRA PEGUERO PA-C 01/15/19 Acetaminophen* (Tylophen*) 500 Mg Capsule, 1 CAP PO Q6H PRN for PAIN AND OR ELEVATED TEMP, #20 CAP Prov:RASHI MCKEON MD 10/09/18 Discontinued Reported Medications Famotidine* (Acid Hairspring Vibrator*) 20 Mg Tablet 10/18/12 Discontinued Scripts Phenazopyridine Hcl* (Pyridium*) 200 Mg Tab, 200 MG PO TID PRN for URINARY PAIN, #6 TAB Prov:TAY COOLEY MD 10/30/18 Cephalexin* (Keflex*) 500 Mg Capsule, 500 MG PO BID for 14 Days, CAP Prov:TAY COOLEY MD 10/30/18 Nitrofurantoin Monohyd Macrocr* (Macrobid*) 100 Mg Capsr, 100 MG PO BID for 7 Days, CAP Prov:RASHI MCKEON MD 10/09/18 Phenazopyridine Hcl* (Pyridium*) 200 Mg Tab, 200 MG PO TID PRN for URINARY PAIN, #6 TAB Prov:RASHI MCKEON MD 10/09/18 Cephalexin* (Keflex*) 500 Mg Capsule, 500 MG PO QID for 7 Days, CAP Prov:TRUNG WHEELER PA-C 08/11/18 Cephalexin* (Keflex*) 500 Mg Capsule, 500 MG PO BID for 7 Days, CAP Prov:DC JULES MD 06/19/18 Ondansetron (Ondansetron Odt) 4 Mg Tab.rapdis, 4 MG PO Q6H PRN for NAUSEA AND/OR VOMITING, #10 TAB Prov:TAY COOLEY MD 06/15/18 Loperamide Hcl* (Imodium*) 2 Mg Capsule, 2 MG PO .AFTER EA LOOSE BM PRN for DIARRHEA, #10 TAB Prov:TAY COOLEY MD 06/15/18 Nitrofurantoin Monohyd Macrocr* (Macrobid*) 100 Mg Capsr, 100 MG PO BID for 7 Days, CAP Prov:TAY COOLEY MD 06/15/18 Loperamide Hcl* (Imodium*) 2 Mg Capsule, 2 MG PO .AFTER EA LOOSE BM PRN for DIARRHEA, #10 TAB Prov:LISSY AMEZCUA 01/13/18 Acetaminophen* (Tylophen*) 500 Mg Capsule, 1 CAP PO Q6H PRN for PAIN AND OR ELEVATED TEMP, #20 CAP Prov:PASILALISSY OHARA 01/13/18 Amoxicillin/Potassium Clav (Amox-Clav 875-125 mg Tablet) 875-125 mg Tab, 1 TAB PO BID for 10 Days, #20 TAB Prov:LISSY AMEZCUA 01/13/18 Ibuprofen* (Motrin*) 600 Mg Tab, 600 MG PO Q6, #30 TAB Prov:KAYLYN MCKEON PA-C 06/23/17 Cephalexin* (Keflex*) 500 Mg Capsule, 500 MG PO TID for 7 Days, CAP Prov:KAYLYN MCKEON PA-C 06/23/17 Ibuprofen* (Motrin*) 800 Mg Tab, 800 MG PO Q6H PRN for PAIN AND OR ELEVATED TEMP, #30 TAB Prov:SHANNAN WILSON DO 04/10/17 Nitrofurantoin Monohyd Macrocr* (Macrobid*) 100 Mg Capsr, 100 MG PO BID for 7 Days, CAP Prov:TONY RODRIGUEZ NP 01/15/17 Acetaminophen* (Tylophen*) 500 Mg Capsule, 1 CAP PO Q6H PRN for PAIN AND OR ELEVATED TEMP, #20 CAP Prov:EDWARD HARRIS PA-C 01/12/17 Cephalexin* (Keflex*) 500 Mg Capsule, 500 MG PO BID for 7 Days, CAP Prov:EDWARD HARRISC 01/12/17 Phenazopyridine Hcl* (Pyridium*) 200 Mg Tab, 200 MG PO TID PRN for URINARY PAIN, #6 TAB Prov:YONIS GLEASON PA-C 12/25/15 Nitrofurantoin Monohyd Macrocr* (Macrobid*) 100 Mg Capsr, 100 MG PO BID for 7 Days, CAP Prov:YONIS GLEASON PA-C 12/25/15 Cyclobenzaprine Hcl* (Cyclobenzaprine Hcl*) 10 Mg Tablet, 10 MG PO TID, #15 TAB Prov:TONY RODRIGUEZ NP 03/24/15 Ibuprofen* (Motrin*) 600 Mg Tab, 600 MG PO Q6H PRN for PAIN AND OR ELEVATED TEMP, #30 Prov:TONY RODRIGEUZ NP 03/24/15 Allergies Allergies: Coded Allergies: ciprofloxacin (Verified Allergy, Intermediate, rashes, 01/27/19) morphine (Verified Adverse Reaction, Unknown, DIARRHEA,VOMITING, 01/27/19) PMhx/Soc History of Surgery: No Anesthesia Reaction: No Hx Neurological Disorder: No Hx Respiratory Disorders: No Hx Cardiac Disorders: No Hx Psychiatric Problems: No Hx Miscellaneous Medical Probl: No Hx Alcohol Use: No Hx Substance Use: No Hx Tobacco Use: No Physical Exam Vitals Vital Signs Date Temp Pulse Resp B/P (MAP) Pulse Ox O2 O2 Flow FiO2 Time Delivery Rate 01/27/19 98.5 57 16 100/55 98 15:40 (70) Physical Exam Constitutional:Well-developed. Well-nourished. HEENT:Normocephalic. Atraumatic.Pupils were equal round reactive to light. Dry mucous membranes.No tonsillar exudates. Neck: No nuchal rigidity. No lymphadenopathy. No posterior cervical spine tenderness or step-offs. Respiratory: Not using accessory muscles of respiration.Lungs were clear to auscultation bilaterally. No rhonchi. No rales. No wheezing. Cardiovascular: Bradycardic with regular rhythm.No murmurs. No rubs were appreciated.S1, S2 normal. Distal pulses are palpable 2+ bilaterally. GI: Abdomen was soft. Left lower quadrant tenderness with voluntary guarding. Non Distended. No pulsatile abdominal masses or bruits. No rebound. No guarding. Bowel sounds were present and normal. Muscle skeletal: Full range of motion of both the upper and lower extremities bilaterally.Normal muscle tone.No assymetrical calf tenderness or swelling. Skin: No petechia, no purpura. No lesions on the palms or the soles of the feet. No maculopapular rash. NEURO: Patient was alert, awake, orientated x3.No facial droop. Gait observed and normal with no ataxia.Speech had regular rate and rhythm. No focal neurological deficits. Result Diagram: 01/27/19 1652 01/27/19 1652 Results 24 hrs Laboratory Tests Test 01/27/19 16:52 White Blood Count 6.4 10^3/ul Red Blood Count 4.07 10^6/ul Hemoglobin 12.3 g/dl Hematocrit 37.8 % Mean Corpuscular Volume 92.9 fl Mean Corpuscular Hemoglobin 30.2 pg Mean Corpuscular Hemoglobin Concent 32.5 g/dl Red Cell Distribution Width 12.7 % Platelet Count 302 10^3/UL Mean Platelet Volume 9.5 fl Immature Granulocytes % 0.200 % Neutrophils % 46.9 % Lymphocytes % 43.7 % Monocytes % 8.0 % Eosinophils % 0.6 % Basophils % 0.6 % Nucleated Red Blood Cells % 0.0 /100WBC Immature Granulocytes # 0.010 10^3/ul Neutrophils # 3.0 10^3/ul Lymphocytes # 2.8 10^3/ul Monocytes # 0.5 10^3/ul Eosinophils # 0.0 10^3/ul Basophils # 0.0 10^3/ul Nucleated Red Blood Cells # 0.0 10^3/ul Prothrombin Time 12.3 Sec Prothrombin Time Ratio 1.0 INR International Normalized Ratio 0.90 Activated Partial Thromboplast Time 27.6 Sec Urine Color EDISON Urine Clarity SLIGHTLY CLOUDY Urine pH 6.0 Urine Specific [place] 1.014 Urine Ketones NEGATIVE mg/dL Urine Nitrite POSITIVE mg/dL Urine Bilirubin NEGATIVE mg/dL Urine Urobilinogen NEGATIVE mg/dL Urine Leukocyte Esterase 3+ [place]/ul Urine Microscopic RBC 5 /HPF Urine Microscopic WBC 57 /HPF Urine Squamous Epithelial Cells FEW /HPF Urine Bacteria FEW /HPF Urine Hemoglobin 1+ mg/dL Urine Glucose NEGATIVE mg/dL Urine Total Protein NEGATIVE mg/dl Sodium Level 141 mmol/L Potassium Level 3.5 mmol/L Chloride Level 104 mmol/L Carbon Dioxide Level 29 mmol/L Anion Gap 8 Blood Urea Nitrogen 3 mg/dl Creatinine 0.77 mg/dl Est Glomerular Filtrat Rate mL/min > 60 mL/min Glucose Level 92 mg/dl Calcium Level 9.6 mg/dl Total Bilirubin 0.6 mg/dl Direct Bilirubin 0.00 mg/dl Indirect Bilirubin 0.6 mg/dl Aspartate Amino Transf (AST/SGOT) 40 IU/L Alanine Aminotransferase (ALT/SGPT) 18 IU/L Alkaline Phosphatase 86 IU/L Troponin I < 0.012 ng/ml Total Protein 7.5 g/dl Albumin 4.2 g/dl Globulin 3.30 g/dl Albumin/Globulin Ratio 1.27 Amylase Level 102 U/L Lipase 115 U/L Current Medications Medications Dose Sig/Gena Start Time Status Last (Trade) Ordered Route PRN Stop Time Admin Dose Reason Admin Sodium 1,000 ml @ Q1H STAT 01/27/19 DC 01/27/19 Chloride 1,000 mls/hr IV 16:43 16:54 01/27/19 17:42 Ondansetron 4 mg ONCE STAT 01/27/19 DC 01/27/19 HCl (Zofran IV 16:43 16:54 Inj) 01/27/19 16:47 Ketorolac 30 mg ONCE STAT 01/27/19 DC 01/27/19 Tromethamine IV 16:43 16:54 (Toradol) 01/27/19 16:47 1 tab ONCE ONCE 01/27/19 DC 01/27/19 Diphenoxylate PO 17:00 20:58 HCl/ 01/27/19 17:01 Atropine (Lomotil) IV Flush 10 ml STK-MED 01/27/19 DC (NS 10 ml) ONCE .ROUTE 18:40 01/27/19 18:41 Sodium 100 ml @ ud STK-MED 01/27/19 DC Chloride ONCE .ROUTE 18:40 01/27/19 18:41 Iohexol 150 ml STK-MED 01/27/19 DC (Omnipaque ONCE .ROUTE 18:40 300mg/ ml) 01/27/19 18:41 Ceftriaxone 50 ml @ ONCE ONCE 01/27/19 DC 01/27/19 Sodium 100 mls/hr IVPB 21:00 20:52 01/27/19 21:29 Procedures/MDM This patient presented to the emergency department with abdominal pain and was seen and evaluated by myself. My differential diagnosis included but was not limited to abdominal aortic aneurysm, appendicitis, pancreatitis, perforated peptic ulcer, perforated viscus, Boerhaave's syndrome or visceral pain such as diverticulitis, DKA, esophagitis, hepatitis or bowel obstruction. The patient was placed on a surveillance system monitor, continuous pulse oximetry, and IV access was established by nursing staff. The patient had signs of clinical dehydration was given IV fluids. She was also given IV Toradol for analgesia control she states she has an allergy to morphine which causes a severe rash and nausea. I obtained a 12-lead EKG tracing to rule out for atypical microinfarction. 12 Lead EKG tracing ordered and reviewed by myself showed: Bradycardic of 46 bpm and no arrhythmia. CO interval normal. QRS duration normal. No ST segment elevation No ST segment depression. No changes consistent with acute ischemia. The patient did have a recurrent urinary tract infection. I reviewed the previous urinalysis taken 2 weeks ago and there was not a urine culture obtained. The patient been placed on Macrobid. Therefore the patient was given 1 g of ceftriaxone in the emergency department. She was afebrile with no leukocytosis. CT scan of the abdomen showed no evidence of diverticulitis. Given that the patient was on Macrobid my clinical suspicion was low for C. difficile. She was given Lomotil in the emergency department. She had no severe electrolyte abnormalities. Observation Note: Time: 4 hours Family Hx: No Hypertension Evaluation: Multiple exams showed improving symptoms and no evidence of recurrent diarrhea in the emergency department. She stated she felt comfortable being discharged home and was refusing admission to the hospital she was offered observation for admission and IV antibiotics. She will be sent home with Keflex. Urine culture was sent. The patient was discharged home in fair condition. They were instructed to return to the emergency department at any time if there was any worsening of their condition. The patient stated they would follow up with their PCP in the next 24-48 hours to initiate a suitable medication regimen under the care of their PCP as well as to allow their PCP to monitor any drug reactions. The patient was discharged home with prescriptions after they gave informed consent to the new medication. They were also fully informed by myself on the adverse effects and adverse drug interactions in order to provide adequate safeguards to prevent possible adverse reactions to medications. The patient did have a urinary tract infection which was with worsening pyuria from her previous visit on January 15 roughly 2 weeks prior to arrival. There was no urine culture that was sent at that time. The patient had no leukocytosis. No severe electrolyte abnormalities. The patient also had a CT scan was performed on January 15, 2019 that showed diverticulosis without diverticulitis. However given that the patient had voluntary guarding with severe pain in the left lower quadrant I did feel is necessary to repeat the CT scan to rule out for abdominal perforation. The CT scan was reviewed by the radiologist and indicate the following: Departure Diagnosis: Primary Impression: UTI (urinary tract infection) Urinary tract infection type: acute cystitis Hematuria presence: without hematuria Qualified Codes: N30.00 - Acute cystitis without hematuria Additional Impression: Diarrhea with dehydration Condition: Fair MONICA HUMMEL MD Jan 27, 2019 17:52
[2019-01-27] MEDS ORDERED: SOD CHLORIDE 0.9% 100 ML ONE (18:40)
[2019-01-27] MEDS ORDERED: IOHEXOL 300MG/ML 150 ML BTL ONE (18:40)
[2019-01-27] MEDS ORDERED: CEFTRIAXONE 1 GM/50 ML (PMX) 50 ML IVPB ONE (21:00)
[2019-01-27] MEDS ORDERED: DIPH1TAB PO (22:06)
[2019-01-27] MEDS ORDERED: CEPH-443 PO (22:06)
[2019-01-27 22:39] VITALS: BP 104/66; PULSE 50; RESP 18
== END 2019-01-27 22:50 | disposition home or self-care (01) ==
LOC: E/R 15:03
DX: N39.0 Urinary tract infection, site not specified (principal); I10 Essential (primary) hypertension; E86.0 Dehydration; R10.9 Unspecified abdominal pain
CPT/HCPCS: 74177; 80053; 81001; 82150; 83690; 84484; 85025; 85610; 85730; 87086; 93005; J0696; J1885; J2405; J7030; Q9967; Z7610; 96374; 96375

== ENCOUNTER 2019-01-29 15:26 | Emergency (ER) | payer OTHER ==
[~2019-01-29] VITALS: Ht 121.9 cm; Wt 38.7 kg
[~2019-01-29 15:26] MED LIST changes: +DIPH1TAB PO
[2019-01-29 15:41] VITALS: BP 112/57; PULSE 54; RESP 16; Ht 121.9 cm; Wt 38.7 kg
--- NOTE | 2019-01-29 16:08 | ERD ---
ER Documentation Chief Complaint Chief Complaint bilateral arm pain and weakness x 1 day HPI 58-year-old female, with multiple medical problems, recently diagnosed with UTI, presents the emergency department, complaining of anxiety for 4 days. The patient reports bilateral finger paresthesia, difficulty falling asleep and anxiety. Otherwise, in regards of her urinary symptoms, the patient refers feeling better, no fever, no chills, no abdominal pain, no hematuria. She reports good compliance with medications without side effects. ROS All systems reviewed and are negative except as per history of present illness. Medications Home Meds Active Scripts Diphenoxylate HCl/Atropine (Lomotil 2.5-0.025 mg Tablet) 1 Each Tablet, 1 TAB PO QID PRN for DIARRHEA, #10 TAB Prov:MONICA HUMMEL MD 01/27/19 Cephalexin* (Keflex*) 500 Mg Capsule, 500 MG PO Q8 for 10 Days, #30 CAP Prov:MONICA HUMMEL MD 01/27/19 Phenazopyridine Hcl* (Pyridium*) 200 Mg Tab, 200 MG PO TID PRN for URINARY PAIN, #6 TAB Prov:ZANDRA PEGUERO PA-C 01/15/19 Nitrofurantoin Monohyd Macrocr* (Macrobid*) 100 Mg Capsr, 100 MG PO BID for 7 Days, #14 CAP Prov:ZANDRA PEGUERO PA-C 01/15/19 Acetaminophen* (Tylophen*) 500 Mg Capsule, 1 CAP PO Q6H PRN for PAIN AND OR ELEVATED TEMP, #20 CAP Prov:RASHI MCKEON MD 10/09/18 Discontinued Reported Medications Famotidine* (Acid Closing Manager*) 20 Mg Tablet 10/18/12 Discontinued Scripts Phenazopyridine Hcl* (Pyridium*) 200 Mg Tab, 200 MG PO TID PRN for URINARY PAIN, #6 TAB Prov:TAY COOLEY MD 10/30/18 Cephalexin* (Keflex*) 500 Mg Capsule, 500 MG PO BID for 14 Days, CAP Prov:TAY COOLEY MD 10/30/18 Nitrofurantoin Monohyd Macrocr* (Macrobid*) 100 Mg Capsr, 100 MG PO BID for 7 Days, CAP Prov:RASHI MCKEON MD 10/09/18 Phenazopyridine Hcl* (Pyridium*) 200 Mg Tab, 200 MG PO TID PRN for URINARY PAIN, #6 TAB Prov:RASHI MCKEON MD 10/09/18 Cephalexin* (Keflex*) 500 Mg Capsule, 500 MG PO QID for 7 Days, CAP Prov:TRUNG WHEELER PA-C 08/11/18 Cephalexin* (Keflex*) 500 Mg Capsule, 500 MG PO BID for 7 Days, CAP Prov:DC JULES MD 06/19/18 Ondansetron (Ondansetron Odt) 4 Mg Tab.rapdis, 4 MG PO Q6H PRN for NAUSEA AND/OR VOMITING, #10 TAB Prov:TAY COOLEY MD 06/15/18 Loperamide Hcl* (Imodium*) 2 Mg Capsule, 2 MG PO .AFTER EA LOOSE BM PRN for DIARRHEA, #10 TAB Prov:TAY COOLEY MD 06/15/18 Nitrofurantoin Monohyd Macrocr* (Macrobid*) 100 Mg Capsr, 100 MG PO BID for 7 Days, CAP Prov:ATY COOLEY MD 06/15/18 Loperamide Hcl* (Imodium*) 2 Mg Capsule, 2 MG PO .AFTER EA LOOSE BM PRN for DIARRHEA, #10 TAB Prov:LISSY AMEZCUA 01/13/18 Acetaminophen* (Tylophen*) 500 Mg Capsule, 1 CAP PO Q6H PRN for PAIN AND OR ELEVATED TEMP, #20 CAP Prov:LISSY AMEZCUA 01/13/18 Amoxicillin/Potassium Clav (Amox-Clav 875-125 mg Tablet) 875-125 mg Tab, 1 TAB PO BID for 10 Days, #20 TAB Prov:LISSY AMEZCUA 01/13/18 Ibuprofen* (Motrin*) 600 Mg Tab, 600 MG PO Q6, #30 TAB Prov:KAYLYN MCKEON PA-C 06/23/17 Cephalexin* (Keflex*) 500 Mg Capsule, 500 MG PO TID for 7 Days, CAP Prov:KAYLYN MCKEON PA-C 06/23/17 Ibuprofen* (Motrin*) 800 Mg Tab, 800 MG PO Q6H PRN for PAIN AND OR ELEVATED TEMP, #30 TAB Prov:SHANNAN WILSON DO 04/10/17 Nitrofurantoin Monohyd Macrocr* (Macrobid*) 100 Mg Capsr, 100 MG PO BID for 7 Days, CAP Prov:TONY RODRIGUEZ QA MANAGER 01/15/17 Acetaminophen* (Tylophen*) 500 Mg Capsule, 1 CAP PO Q6H PRN for PAIN AND OR ELEVATED TEMP, #20 CAP Prov:EDWARD HARRISC 01/12/17 Cephalexin* (Keflex*) 500 Mg Capsule, 500 MG PO BID for 7 Days, CAP Prov:EDWARD HARRIS-C 01/12/17 Phenazopyridine Hcl* (Pyridium*) 200 Mg Tab, 200 MG PO TID PRN for URINARY PAIN, #6 TAB Prov:YONIS GLEASON PA-C 12/25/15 Nitrofurantoin Monohyd Macrocr* (Macrobid*) 100 Mg Capsr, 100 MG PO BID for 7 Days, CAP Prov:YONIS GLEASON PA-C 12/25/15 Cyclobenzaprine Hcl* (Cyclobenzaprine Hcl*) 10 Mg Tablet, 10 MG PO TID, #15 TAB Prov:TONY RODRIGUEZ QA MANAGER 03/24/15 Ibuprofen* (Motrin*) 600 Mg Tab, 600 MG PO Q6H PRN for PAIN AND OR ELEVATED TEMP, #30 Prov:TONY RODRIGUEZ QA MANAGER 03/24/15 Allergies Allergies: Coded Allergies: ciprofloxacin (Verified Allergy, Intermediate, rashes, 01/27/19) morphine (Verified Adverse Reaction, Unknown, DIARRHEA,VOMITING, 01/27/19) PMhx/Soc History of Surgery: No Anesthesia Reaction: No Hx Neurological Disorder: No Hx Respiratory Disorders: No Hx Cardiac Disorders: No Hx Psychiatric Problems: No Hx Miscellaneous Medical Probl: No Hx Alcohol Use: No Hx Substance Use: No Hx Tobacco Use: No FmHx Family History: No diabetes, No coronary disease Physical Exam Vitals Vital Signs Date Temp Pulse Resp B/P (MAP) Pulse Ox O2 O2 Flow FiO2 Time Delivery Rate 01/29/19 98.8 54 16 112/57 98 15:41 (75) Physical Exam Const: No acute distress Head: Atraumatic Eyes: Normal Conjunctiva ENT: Normal External Ears, Nose and Mouth. Neck: Full range of motion. No meningismus. Resp: Clear to auscultation bilaterally Cardio: Regular rate and rhythm, no murmurs Abd: Soft, non tender, non distended. Normal bowel sounds Skin: No petechiae or rashes Back: No midline or flank tenderness Ext: No cyanosis, or edema Neur: Awake and alert Psych: Normal Mood and Affect Results 24 hrs Current Medications Medications Dose Sig/Gena Start Time Status Last (Trade) Ordered Route PRN Stop Time Admin Dose Reason Admin Lorazepam 0.5 mg ONCE ONCE 01/29/19 (Ativan) PO 16:30 01/29/19 16:31 Procedures/MDM Vital signs stable, Physical exam unremarkable, neurovascular exam intact. Differential diagnosis include but not limited to: Depression, anxiety, migraine, thyroid disease, electrolyte imbalance. Low suspicion for acute coronary event, aortic dissection, CVA. Physical examination and clinical presentation consistent most likely with anxiety. During the ED course the patient remained stable, no new complaints. The patient received treatment with lorazepam presenting overall improvement of the symptoms. Treatment options, results and clinical impression discussed with patient who agrees with management. The patient is stable to be treated outpatient and will be discharged home with a Rx for lorazepam, some side effects of prescribed medications (headache, rash, nausea, vomiting, diarrhea, drowsiness, habituation, bleeding, hypertension, interactions with other medications) were reviewed. The patient was instructed to follow up with the primary care provider in the next 48h. If symptoms persist, worsen or new symptoms develop, then patient should return to the ED immediately. Instructions explained and given directly by me to the patient with acknowledgment and demonstrated understanding. Disclaimer: Inadvertent spelling and grammatical errors are likely due to EHR/dictation software use and do not reflect on the overall quality of patient care. Also, please note that the electronic time recorded on this note does not necessarily reflect the actual time of the patient encounter. Departure Diagnosis: Primary Impression: Anxiety Condition: Stable Additional Instructions: Muchas claudia por [facility] para carney servicio. Esperamos que en carney visita a la domingo de emergencia carney problema medico haya sido solucionado y que se sienta mucho mejor. Para estar seguros que carney mejoria sigue en proceso, le pedimos el favor de hacer [place] loan de seguimiento medico con carney doctor primario en los proximos 2-4 lala. Lleve con usted estos documentos y las medicinas recetadas. Si pradeep sintomas empeoran, NO SE ESPERE, por favor regrese a domingo de emergencia INMEDIATAMENTE. En avis que usted no tenga un mdico de atencin primaria: Llame al mdico o clnica comunitaria de referencia que aparece abajo diane las horas de consultorio para hacer [place] loan para que le vean. CLINICAS: [facility] [phone] [id number] [address] [facility] [phone] [id number] [facility] [phone] [facility] [phone] [facility] [phone] [address] [facility]. [phone] JILLIAN VITAL MD Jan 29, 2019 16:08
[2019-01-29] MEDS ORDERED: LORAZEPAM 0.5 MG TAB PO ONE (16:30)
[2019-01-29] MEDS ORDERED: LORA-441 PO (16:30)
== END 2019-01-29 16:39 | disposition home or self-care (01) ==
LOC: FTE 15:26
DX: F41.9 Anxiety disorder, unspecified (principal)
CPT/HCPCS: Z7502; Z7610; 99283

== ENCOUNTER 2019-02-16 10:09 | Emergency (ER) | payer OTHER ==
[~2019-02-16] VITALS: Ht 134.6 cm; Wt 37.0 kg
[~2019-02-16 10:09] MED LIST changes: -CYCL10TA7 PO; -IBUP-1542 PO; -IBUP800T48 PO; -LOPE2CAP PO; +LORA-441 PO; +NAPR-985 PO; -ONDA4TAB14 PO; -[UNRECOGNIZED DRUG - CODE]
[2019-02-16 10:15] VITALS: Ht 134.6 cm; Wt 37.0 kg
[2019-02-16] MEDS ORDERED: LIDOCAINE 1% (MPF) 5 ML VIAL INJ ONE (11:00)
[2019-02-16] MEDS ORDERED: CEFTRIAXONE 1 GM INJ IM ONE (11:00)
[2019-02-16] MEDS ORDERED: HYDROCODONE/APAP (5/325) TAB PO ONE (11:30)
[2019-02-16 11:40] VITALS: BP 111/63; PULSE 87; RESP 17
--- NOTE | 2019-02-16 14:26 | ERD ---
ER Documentation Chief Complaint Chief Complaint PT BIB AMBULANCE FOR VAGINAL PAIN X3 DAYS, NO VB HPI 58-year-old female presenting with dysuria x3 days. 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 Patient has not seen a urologist. Patient denies any fevers and has not taken medicine for her symptoms today. She states that she is experiencing increased dysuria over the last 3 days. She denies any fevers. Denies back pain. Denies vaginal discharge. Denies other medical problems. Allergic to morphine and Cipro. Surgical history denies. ROS All systems reviewed and are negative except as per history of present illness. Medications Home Meds Active Scripts Phenazopyridine Hcl* (Pyridium*) 200 Mg Tab, 200 MG PO TID PRN for URINARY PAIN, #6 TAB Prov:TRUNG WHEELER PA-C 02/16/19 Naproxen* (Naprosyn*) 500 Mg Tablet, 500 MG PO BID PRN for PAIN AND/OR INFLAMMATION, #30 TAB Prov:TRUNG WHEELER PA-C 02/16/19 Cephalexin* (Keflex*) 500 Mg Capsule, 500 MG PO QID for 7 Days, CAP Prov:TRUNG WHEELER PA-C 02/16/19 Lorazepam* (Ativan*) 0.5 Mg Tablet, 0.5 MG PO DAILY PRN for ANXIETY, #7 TAB Prov:JILLIAN NEWBY MD 01/29/19 Diphenoxylate HCl/Atropine (Lomotil 2.5-0.025 mg Tablet) 1 Each Tablet, 1 TAB PO QID PRN for DIARRHEA, #10 TAB Prov:MONICA HUMMEL MD 01/27/19 Cephalexin* (Keflex*) 500 Mg Capsule, 500 MG PO Q8 for 10 Days, #30 CAP Prov:MONICA HUMMEL MD 01/27/19 Phenazopyridine Hcl* (Pyridium*) 200 Mg Tab, 200 MG PO TID PRN for URINARY PAIN, #6 TAB Prov:ZANDRA PEGUERO PA-C 01/15/19 Nitrofurantoin Monohyd Macrocr* (Macrobid*) 100 Mg Capsr, 100 MG PO BID for 7 Days, #14 CAP Prov:ZANDRA PEGUERO PA-C 01/15/19 Acetaminophen* (Tylophen*) 500 Mg Capsule, 1 CAP PO Q6H PRN for PAIN AND OR ELEVATED TEMP, #20 CAP Prov:RASHI MCKEON MD 10/09/18 Allergies Allergies: Coded Allergies: ciprofloxacin (Verified Allergy, Intermediate, rashes, 01/27/19) morphine (Verified Adverse Reaction, Unknown, DIARRHEA,VOMITING, 01/27/19) PMhx/Soc Medical and Surgical Hx: pt denies Medical Hx History of Surgery: Yes (Frances) Anesthesia Reaction: No Hx Neurological Disorder: No Hx Respiratory Disorders: No Hx Cardiac Disorders: No Hx Psychiatric Problems: No Hx Miscellaneous Medical Probl: No Hx Alcohol Use: No Hx Substance Use: No Hx Tobacco Use: No Smoking Status: Never smoker FmHx Family History: No diabetes, No coronary disease, No other Physical Exam Vitals Vital Signs Date Temp Pulse Resp B/P (MAP) Pulse Ox O2 O2 Flow FiO2 Time Delivery Rate 02/16/19 98.2 87 17 111/63 97 Room Air 11:40 (79) 02/16/19 98.4 99 17 134/71 98 10:15 (92) Physical Exam GENERAL: The patient is well-appearing, well-nourished, in no acute distress HEENT: Atraumatic. Conjunctivae are pink. Pupils equal, round, and reactive to light. There is no scleral icterus. Tympanic membranes clear bilaterally. Oropharynx clear. CHEST: Clear to auscultation bilaterally. There are no rales, wheezes or rhonchi. HEART: Regular rate and rhythm. No murmurs, clicks, rubs or gallops ABDOMEN:Soft, nontender and nondistended. Good bowel sounds. No rebound or guarding. No gross peritonitis. No gross organomegaly or masses. BACK: No midline or flank tenderness. Results 24 hrs Laboratory Tests Test 02/16/19 10:43 Bedside Urine pH (LAB) 6.0 Bedside Urine Protein (LAB) Negative Bedside Urine Glucose (UA) Negative Bedside Urine Ketones (LAB) Negative Bedside Urine Blood 2+ Bedside Urine Nitrite (LAB) Positive Bedside Urine Leukocyte Esterase (L 2+ Current Medications Medications Dose Sig/Gena Start Time Status Last (Trade) Ordered Route PRN Stop Time Admin Dose Reason Admin Ceftriaxone 1 gm ONCE ONCE 02/16/19 DC 02/16/19 Sodium IM 11:00 11:17 (Rocephin) 02/16/19 11:01 Lidocaine 5 ml ONCE ONCE 02/16/19 DC 02/16/19 (Xylocaine INJ 11:00 11:17 1% (Mpf)) 02/16/19 11:01 1 tab ONCE ONCE 02/16/19 DC 02/16/19 Acetaminophen PO 11:30 11:18 / 02/16/19 11:31 Hydrocodone Bitart ([place] (5/325)) Procedures/MDM Course: Urinalysis positive for infection. Rocephin given in ED. Urine sent for culture. MDM: 58-year-old female presenting with dysuria. Patient has findings of urinary tract infection on urinalysis. I have low suspicion for pyelonephritis. I have low suspicion for acute abdominal emergency. Patient is discharged with antibiotics. Given that she has a long-standing urinary tract infection I will send urine for culture. I have low suspicion for sepsis. Will suspicion for acute abdominal or pelvic infection. Patient is discharged with strict ER precautions and told to follow-up with primary care within 1 to 2 days for close evaluation. Patient is told symptoms change or worsen to return immediately to the ER. All questions answered at discharge Departure Diagnosis: Primary Impression: UTI (urinary tract infection) Condition: Stable Patient Instructions: Understanding Urinary Tract Infections (UTIs) Referrals: PARVIN AGUSTIN (PCP) Additional Instructions: FOLLOW UP WITH YOUR PRIMARY CARE PHYSICIAN TOMORROW.Return to this facility if you are not improving as expected. TRUNG WHEELER PA-C Feb 16, 2019 14:26
== END 2019-02-16 12:00 | disposition home or self-care (01) ==
LOC: FTE 10:09
DX: N39.0 Urinary tract infection, site not specified (principal)
CPT/HCPCS: 81003; 87086; 96372; J0696; Z7502; Z7610

== ENCOUNTER 2019-02-18 10:53 | Emergency (ER) | payer OTHER ==
[~2019-02-18] VITALS: Ht 149.9 cm; Wt 37.0 kg
[2019-02-18 10:58] VITALS: BP 145/63; PULSE 85; RESP 20; Ht 149.9 cm; Wt 37.0 kg
[2019-02-18] MEDS ORDERED: ONDANSETRON (ODT) 4 MG TAB ODT STA (11:55)
[2019-02-18] MEDS ORDERED: HYDROCODONE/APAP (5/325) TAB PO ONE (12:00)
--- NOTE | 2019-02-18 12:49 | ERD ---
ER Documentation Chief Complaint Chief Complaint PAINFUL URINATION, VAGINAL PAIN HPI 58-year-old female presenting with dysuria. Patient states she has some vaginal pain. Patient is currently taking Keflex. Patient denies any hematuria and denies any fevers. Denies acute abdominal pain. Medical history denies. Allergies to Cipro and morphine. Surgical history denies. Social history denies ROS All systems reviewed and are negative except as per history of present illness. Medications Home Meds Active Scripts Amoxicillin/Potassium Clav (Amox-Clav 875-125 mg Tablet) 875-125 mg Tab, 1 TAB PO BID for 7 Days, #14 TAB Prov:TRUNG WHEELER PA-C 02/18/19 Phenazopyridine Hcl* (Pyridium*) 200 Mg Tab, 200 MG PO TID PRN for URINARY PAIN, #6 TAB Prov:TRUNG WHEELER PA-C 02/16/19 Naproxen* (Naprosyn*) 500 Mg Tablet, 500 MG PO BID PRN for PAIN AND/OR INFLAMMATION, #30 TAB Prov:TRUNG WHEELER PA-C 02/16/19 Cephalexin* (Keflex*) 500 Mg Capsule, 500 MG PO QID for 7 Days, CAP Prov:TRUNG WHEELER PA-C 02/16/19 Lorazepam* (Ativan*) 0.5 Mg Tablet, 0.5 MG PO DAILY PRN for ANXIETY, #7 TAB Prov:JILLIAN NEWBY MD 01/29/19 Diphenoxylate HCl/Atropine (Lomotil 2.5-0.025 mg Tablet) 1 Each Tablet, 1 TAB PO QID PRN for DIARRHEA, #10 TAB Prov:MONICA HUMMEL MD 01/27/19 Cephalexin* (Keflex*) 500 Mg Capsule, 500 MG PO Q8 for 10 Days, #30 CAP Prov:MONICA HUMMEL MD 01/27/19 Phenazopyridine Hcl* (Pyridium*) 200 Mg Tab, 200 MG PO TID PRN for URINARY PAIN, #6 TAB Prov:ZANDRA PEGUERO PA-C 01/15/19 Nitrofurantoin Monohyd Macrocr* (Macrobid*) 100 Mg Capsr, 100 MG PO BID for 7 Days, #14 CAP Prov:ZANDRA PEGUERO PA-C 01/15/19 Acetaminophen* (Tylophen*) 500 Mg Capsule, 1 CAP PO Q6H PRN for PAIN AND OR [place] TEMP, #20 CAP Prov:RASHI MCKEON MD 10/09/18 Allergies Allergies: Coded Allergies: ciprofloxacin (Verified Allergy, Intermediate, rashes, 01/27/19) morphine (Verified Adverse Reaction, Unknown, DIARRHEA,VOMITING, 01/27/19) PMhx/Soc History of Surgery: Yes (Frances) Anesthesia Reaction: No Hx Neurological Disorder: No Hx Respiratory Disorders: No Hx Cardiac Disorders: No Hx Psychiatric Problems: No Hx Miscellaneous Medical Probl: Yes (recurrent UTI) Hx Alcohol Use: No Hx Substance Use: No Hx Tobacco Use: No Smoking Status: Never smoker FmHx Family History: No diabetes, No coronary disease, No other Physical Exam Vitals Vital Signs Date Temp Pulse Resp B/P (MAP) Pulse Ox O2 O2 Flow FiO2 Time Delivery Rate 02/18/19 98.7 85 20 145/63 98 10:58 (90) Physical Exam GENERAL: The patient is well-appearing, well-nourished, in no acute distress HEENT: Atraumatic. Conjunctivae are pink. Pupils equal, round, and reactive to light. There is no scleral icterus. Tympanic membranes clear bilaterally. Oropharynx clear. CHEST: Clear to auscultation bilaterally. There are no rales, wheezes or rhonchi. HEART: Regular rate and rhythm. No murmurs, clicks, rubs or gallops. ABDOMEN:Soft, nontender and nondistended. Good bowel sounds. No rebound or guarding. No gross peritonitis. No gross organomegaly or masses. No Kim sign or McBurney point tenderness. : Normal exam. No masses or erythema noted around the vaginal opening. No discharge. Results 24 hrs Laboratory Tests Test 02/18/19 11:25 Urine Color [place] Urine Clarity CLEAR Urine pH 8.0 Urine Specific [place] 1.001 Urine Ketones NEGATIVE mg/dL Urine Nitrite POSITIVE mg/dL Urine Bilirubin NEGATIVE mg/dL Urine Urobilinogen NEGATIVE mg/dL Urine Leukocyte Esterase 1+ [place]/ul Urine Microscopic RBC 2 /HPF Urine Microscopic WBC 1 /HPF Urine Hemoglobin NEGATIVE mg/dL Urine Glucose NEGATIVE mg/dL Urine Total Protein NEGATIVE mg/dl Current Medications Medications Dose Sig/Gena Start Time Status Last (Trade) Ordered Route PRN Stop Time Admin Dose Reason Admin 1 tab ONCE ONCE 02/18/19 DC 02/18/19 Acetaminophen PO 12:00 12:00 / 02/18/19 12:01 Hydrocodone Bitart ([place] (5/325)) Ondansetron 4 mg ONCE STAT 02/18/19 DC 02/18/19 HCl (Zofran ODT 11:55 12:00 Odt) 02/18/19 11:57 Procedures/MDM ER course: [place] given in ED. Urinalysis positive for infection. MDM: 58-year-old female presenting with dysuria. Patient has a positive infection. Patient has a urine culture pending at this time. I will add on Augmentin given patient has been taking Keflex. Patient's exam is within normal limits. I have low suspicion for pyelonephritis or other acute abdominal emergency. Patient is discharged with strict ER precautions and told to follow- up with primary care. All questions answered at discharge Departure Diagnosis: Primary Impression: Cystitis Condition: Stable Patient Instructions: Cystitis Referrals: PARVIN AGUSTIN (PCP) TELEVISION AUDIO ENGINEER [place] [address] [facility] [address] [place], [place] [phone] OFFICE FAX DR.ABUSLEME MENDOZA [address] [place] [place] [phone] [facility] [facility] [address] [place], [place] [phone] AQUILES PETE [address] [facility], [facility] [address] [address] [address] [address] [place] [phone] [facility] [address] [place] [address] [address] [facility] [id number] - [address] ALLAN HARPER [address] [place] [address] DR CHACON, CARMELLA [address] [facility] [address], [place] [address] DR WARD, [place] [address] [place] [address] Additional Instructions: FOLLOW UP WITH YOUR PRIMARY CARE PHYSICIAN TOMORROW.Return to this facility if you are not improving as expected. TRUNG WHEELER PA-C Feb 18, 2019 12:49
== END 2019-02-18 12:05 | disposition home or self-care (01) ==
LOC: FTE 10:53
DX: N30.90 Cystitis, unspecified without hematuria (principal)
CPT/HCPCS: 81001; 87086; Z7502; Z7610; 99284

== ENCOUNTER 2019-03-22 13:01 | Emergency (ER) | payer OTHER ==
[~2019-03-22] VITALS: Ht 147.3 cm; Wt 36.0 kg
[~2019-03-22 13:01] MED LIST changes: +POLY17PO6 PO
[2019-03-22 13:19] VITALS: BP 107/55; PULSE 87; RESP 18; Ht 147.3 cm; Wt 36.0 kg
== END 2019-03-22 14:44 | disposition home or self-care (01) ==
LOC: FTE 13:01
DX: F33.0 Major depressive disorder, recurrent, mild (principal); N30.00 Acute cystitis without hematuria
CPT/HCPCS: 81001; Z7502; 99283

== ENCOUNTER 2019-05-12 18:44 | Emergency (ER) | payer OTHER ==
[~2019-05-12] VITALS: Ht 142.2 cm; Wt 35.2 kg
[2019-05-12 18:49] VITALS: Ht 142.2 cm; Wt 35.2 kg
[2019-05-12] MEDS ORDERED: SOD CHLORIDE 0.9% 500 ML IV STA (22:33)
[2019-05-12] MEDS ORDERED: KETOROLAC 15 MG INJ IV STA (22:33)
[2019-05-13 00:11] VITALS: BP 121/67; PULSE 69; RESP 17
== END 2019-05-13 00:20 | disposition home or self-care (01) ==
LOC: E/R 18:44
DX: K59.00 Constipation, unspecified (principal)
CPT/HCPCS: 80053; 81001; 83690; 85025; 96361; 96374; J1885; J7040; Z7502